=== PATIENT | female | born 1985 ===

== ENCOUNTER 2016-12-31 14:08 | Inpatient (IN) | payer OTHER ==
[2016-12-31 14:45] VITALS: BMI 32.1
--- NOTE | 2016-12-31 14:45 | OBADHP ---
Datetime: 12/31/2016 14:31 IP Chief Complaint Other: olihydramisos Admit Comment, IP Provider: Dr Monahan Private pateint at 39weeks came with c/o decreased fm and leakage of fluid on/off few days.no ctxs or vb. pt was not feeling the baby moving from the morning.pt went for sonogram and no fluid seen. obhx 1 x c/s ph hypothryroidism med synthroid all nkda psh c/s soch de ve /3 sono cep/ant/no fluid a/p at 39weeks pprom/dec fm and anyhraminosos admit to l_d npo/ivf labs pain magement cont neftali and efm james baloon anticioate vaginal delivery Pelvic Type - PN: Adequate Extremities - PN: Normal Abdomen - PN: Normal Back - PN: Normal Breast - PN: Not Done Lungs - PN: Normal Heart - PN: Normal Thyroid - PN: Not Done Neurologic - PN: Normal HEENT - PN: Normal General - PN: Normal FHR - Baseline A Provider: 130 Amniotic Fluid Color, Provider: Clear Membranes, Provider: Ruptured Contraction Comments Provider: irrg Comments, ACOG Physical Exam: gravid,non tender ext no sharon,no calf ten sse +pooling,+nitrazine Pool Provider: Positive Nitrazine Provider: Positive IP Hx Assessment: The History has been Reviewed and is Current Vital Signs Provider: Reviewed; Within Normal Limits IP Chief Complaint: Decreased movement NICHD Variability Prov Fetus A: Moderate 6-25bpm NICHD Accel Fetus A IP Provider: 15X15 FHR Category Provider Fetus A: Category I Dilatation, Provider: 1 Effacement, Provider: 50 Station, Provider: -3 Genitourinary Exam: Normal DTRs - PN: Normal EGA AdmitDate IP: 39.0 IP Adm Impression: Term, intrauterine IP Admit Plan: Admit to unit; Initiate protocol
[2016-12-31 15:24] LABS: BASO % 0.2 % (0.0-2.0); EOS # 0.1 K/uL (0.0-0.7); EOS % 0.8 % (0.0-4.0); HEMATOCRIT 38.2 % (34.0-47.0); LYMPH # 1.6 K/uL (1.0-4.3); LYMPH % 15.6 % (20.0-40.0); MEAN CELL VOLUME 82.5 fL (81.0-99.0); MEAN CORPUSCULAR HEMOGLOBIN 28.6 pg (27.0-31.0); MEAN CORPUSCULAR HGB CONC 34.7 g/dL (33.0-37.0); MEAN PLATELET VOLUME 10.5 fL (7.2-11.7); MONO # 0.5 K/uL (0.0-0.8); MONO % 4.7 % (0.0-10.0); WHITE BLOOD COUNT 10.3 K/uL (4.8-10.8)
[2016-12-31 15:31] LABS: RBC URINE 1 /hpf (0-3); URINE BACTERIA RARE (<OCC); URINE BILIRUBIN NEGATIVE (NEGATIVE); URINE BLOOD NEGATIVE (NEGATIVE); URINE COLOR Yellow (YELLOW); URINE GLUCOSE (UA) NORMAL (Normal); URINE KETONE NEGATIVE (NEGATIVE); URINE LEUKOCYTE ESTERASE 1+ Leu/uL (Negative); URINE PROTEIN NEGATIVE (NEGATIVE); URINE UROBILINOGEN NORMAL mg/dL (0.2-1.0); WBC URINE 10 /hpf (0-5)
[2016-12-31 15:38] LABS: CHLORIDE 104 mmol/L (98-107); SODIUM 134 mmol/L (132-148)
[2016-12-31 15:39] LABS: POTASSIUM 3.8 mmol/L (3.6-5.2)
[2016-12-31 15:41] LABS: ALKALINE PHOSPHATASE 126 U/L (38-126); AST/SGOT 23 U/L (14-36); BILIRUBIN,TOTAL 0.3 mg/dL (0.2-1.3); CARBON DIOXIDE 19 mmol/L (22-30); GFR AFRICAN-AMERICAN > 60; TOTAL PROTEIN 7.3 g/dL (6.3-8.3)
[2016-12-31 15:42] LABS: ALT/SGPT 32 U/L (9-52); BLOOD UREA NITROGEN 6 mg/dL (7-17); CALCIUM 9.5 mg/dl (8.6-10.4); GLUCOSE,RANDOM 93 mg/dL (65-105)
[2016-12-31] MEDS ORDERED: Oxytocin 30 UNIT 30 UNITS/500 ML BAG IV PRN (16:26)
[2016-12-31] MEDS ORDERED: Nalbuphine 20 mg/ml Inj (1 ml) IVP PRN (16:30)
[2016-12-31] MEDS: Lactated Ringer's 1,000 ML IV SCH (21:25)
--- NOTE | 2017-01-01 04:02 | OBPN ---
Datetime: 01/01/2017 04:01 IP Procedures: Sterile Vag Exam Contraction Comments Provider: q1-5 FHR - Baseline A Provider: 130 IP Progress Note Comment: pt was examined at bed side ve 60/-2 cervical james baloon cont pitocin will revaluate i 2 hrs and if no chane will do c/s Vital Signs Provider: Reviewed; Within Normal Limits NICHD Accel Fetus A IP Provider: 15X15 FHR Category Provider Fetus A: Category I NICHD Variability Prov Fetus A: Moderate 6-25bpm Dilatation, Provider: 1 Effacement, Provider: 60 Station, Provider: -3 Datetime: 12/31/2016 14:31 Pool Provider: Positive Nitrazine Provider: Positive Membranes, Provider: Ruptured Amniotic Fluid Color, Provider: Clear
[2017-01-01] MEDS ORDERED: Oxytocin 20 units in LR 2,000 ML IV ONE (04:43)
[2017-01-01] MEDS ORDERED: cefOXitin IV 2 gm in Dextrose 2 GM/50 ML BAG IVPB ONE ×2 (04:43→05:00)
--- NOTE | 2017-01-01 06:19 | OBPN ---
Datetime: 01/01/2017 06:16 IP Progress Impression: Arrest of dilatation/descent IP Informed Consent Obtain: Section Delivery; Risks, Benefits and Alternatives Discussed IP Procedures: Sterile Vag Exam Contraction Comments Provider: q1-4 FHR - Baseline A Provider: 130 IP Progress Note Comment: pt was examinerd at bed side derrick /-3 no cgane after pitocin and james c/s called. fsiled r/a/b disc npo/ivf or aware athesia awar all questions answered NICHD Accel Fetus A IP Provider: 15X15 FHR Category Provider Fetus A: Category I NICHD Variability Prov Fetus A: Moderate 6-25bpm Dilatation, Provider: 1 Effacement, Provider: 50 Station, Provider: -3
--- NOTE | 2017-01-01 06:21 | PCM.SURG1 ---
Surgeon's Initial Post Op Note - Surgeon's Notes Surgeon: dr sepulveda Warp Bleaching Vat Tender: dr spring Anesthesia Administered By: dr garcia Pre-Operative Diagnosis: 31 yr at 39+weeks anyhyraminosis/failerd induction /failed Operative Findings: see the op report Post-Operative Diagnosis: same Operation Performed: repeat section Specimen/Specimens Removed: cord blood. cord gas. placente Estimated Blood Loss: EBL {In ML}: 700 Blood Products Given: N/A Drains Used: No Drains Post-Op Condition: Good Date of Surgery/Procedure: 01/01/17 Time of Surgery/Procedure: 08:00
[2017-01-01] MEDS ORDERED: Morphine 1 mg/ml preservative-free Inj(Duramorph) ONE (06:31)
[2017-01-01] MEDS ORDERED: ePHEDrine 50 mg/ml Inj ONE (06:57)
[2017-01-01] MEDS ORDERED: Naloxone 0.4 mg/ml Inj (Adult) IVP PRN (07:49)
[2017-01-01] MEDS ORDERED: Oxytocin 20 units in LR 0 ML IV ONE (08:08)
[2017-01-01] MEDS: Lactated Ringer's 1,000 ML IV SCH (17:36)
[2017-01-01] MEDS: Simethicone 80 mg Chewtab PO SCH ×2 (17:39→22:33)
[2017-01-02] MEDS ORDERED: Bisacodyl 5mg EC Tab PO ONE (06:30)
[2017-01-02 07:29] LABS: HEMATOCRIT 38.4 % (34.0-47.0); MEAN CELL VOLUME 82.5 fL (81.0-99.0); MEAN CORPUSCULAR HEMOGLOBIN 28.5 pg (27.0-31.0); MEAN CORPUSCULAR HGB CONC 34.6 g/dL (33.0-37.0); MEAN PLATELET VOLUME 9.4 fL (7.2-11.7); RED CELL DISTRIBUTION WIDTH 14.5 % (11.5-14.5); WHITE BLOOD COUNT 14.4 K/uL (4.8-10.8)
[2017-01-02] MEDS: Oxycodone/Acetaminophen 5/325 mg Tab PO PRN ×2 (08:30→14:25)
[2017-01-02] MEDS: Simethicone 80 mg Chewtab PO SCH ×4 (10:25→22:15)
--- NOTE | 2017-01-02 11:21 | OBPPN ---
Datetime: 01/02/2017 07:34 PP Pain Prov: Within normal limits PP Nausea Prov: Denies PP Flatus Prov: Yes PP BM Prov: No PP Breasts Prov: Normal PP Heart Prov: Normal PP Lungs Prov: Normal PP Abdomen/Uterus Prov: Normal PP Lochia Prov: Normal PP Vulva/Perineum Prov: Normal PP CVA Tenderness Prov: Normal PP Extremities Prov: Normal PP C/S Incision Prov: Normal PP Progress Prov: Normal PP Comments Phys Exam Prov: incision clean and dry abd fundus below breakfast ext mild edema,no calf ten PP Impression Prov: Normal progression PP Plan Prov: Continue present management PP Progress Note Prov: 31 year old female status post day 1 after states her pain is currently a 4/10. She states she is taking her pain medication but it does make her drowsy. She sta roro she is passing flatus but denies a bowel movement. She states she is trying to breastfeed. She denies dysuria, nausea or vomiting. Objective: B/P: 110/70 H/H (01/02): 13.3/38.4 H/H on admission (12/31):13.3/38.2 Abdomen: Tender, soft, fundus is firm, incision is clean, dry and intact Lower Extremity: non-tender, non-swollen A/P: 31 year old female status post op day 1 01/01 1.) Advance diet 2.) Continue pain managment 3.) Encourage ambulation 4.) Encourage breast feeding. Jamilah Amador, PGY-1 Vital Signs Provider PP: Reviewed; Within Normal Limits
[2017-01-03] MEDS: Levothyroxine 75 MCG TAB PO SCH (06:24)
[2017-01-03] MEDS: Simethicone 80 mg Chewtab PO SCH ×4 (09:37→21:42)
[2017-01-03] MEDS: Oxycodone/Acetaminophen 5/325 mg Tab PO PRN ×2 (12:37→20:33)
[2017-01-04] MEDS: Levothyroxine 75 MCG TAB PO SCH (07:10)
[2017-01-04 08:36] VITALS: BP 125/81; PULSE 74; RESP 18; TEMP 97.5; O2SAT 98
[2017-01-04] MEDS: Simethicone 80 mg Chewtab PO SCH (09:46)
[2017-01-04] MEDS ORDERED: Influenza Vaccine 60 mcg/0.5 mL SYR (4YR UP) IM ONE (10:30)
--- NOTE | 2017-01-06 11:51 | OP ---
PROCEDURE DATE: PREOPERATIVE DIAGNOSES: A 31-year-old 2, para 1 at 38 plus weeks with oligohydramnios, rule out rupture of membranes, requested vaginal after section, failed vaginal after section. POSTOPERATIVE DIAGNOSES: A 31-year-old 2, para 1 at 38 plus weeks with oligohydramnios, rule out rupture of membranes, requested vaginal after section, failed vaginal after section. SURGEON: Balwinder Monahan MD CHIP UNLOADER SURGEON: Dr. Caballero who was present throughout the surgery for retraction, exposing and pushing at the time of the delivery. TYPE OF ANESTHESIA: Spinal. ANESTHESIOLOGIST: Madan Philippe MD COMPLICATIONS: None. ESTIMATED BLOOD LOSS: 700 mL. PROCEDURE PERFORMED: section after failed . DESCRIPTION OF PROCEDURE: After informed consent was obtained, the patient was brought to the operating room, placed on the table where spinal anesthesia was given. Once the anesthesia was given, the patient was prepped and draped in the normal sterile fashion. Above 2 cm above the pubic bone, skin incision was made with a knife, the subcutaneous cut with a Bovie. The fascia was then excised on both the sides using curved Nice scissors. Rectus muscle was lift up with 2 Allis and then it was cut with a knife, the peritoneum was lifted up with 2 Allis which was cut with Metzenbaum scissors and we went into the abdominal cavity. Bladder blade was placed. Bladder flap was created. Lower uterine segment incision was made with a knife, it was extended using Bovie and curved Nice scissors. Baby was delivered in a direct occipitoposterior position, cord was clamped and cut, baby was handed to the awaiting offset plate preparation supervisor. There was cord around the neck of the baby. Cord gas was sent. Placenta delivered manually and sent to the Pathology. Uterus was exteriorized and cleared of all clots and debris. Uterine incision was closed using #1 Vicryl in running interlocking fashion. Second layer was closed with the same stitch. Cul-de-sac was cleared of all the clots and debris. Uterus was returned back to the abdominal cavity. After that, gutters were cleared of all the clots and debris. Peritoneum was closed using 2-0 Vicryl in running interlocking fashion. Muscle was closed using 2-0 Vicryl in running interlocking fashion. The fascia was closed using #1 Vicryl in running interlocking fashion. Subcutaneous tissue was closed with 0 Vicryl in interrupted fashion. Skin was closed using 3-0 Monocryl straight needle. The patient tolerated the procedure well. Lap, sponge, and instrument counts were correct x2. Balwinder Monahan MD
== END 2017-01-04 13:00 | disposition home or self-care (01) | DRG 766 ==
LOC: C.EROB 14:08 → C.4D 14:31 → C.4M 01-01 10:00
PROVIDERS: ADMIT Obstetrics & Gynecology; ATTEND Obstetrics & Gynecology
PROC: 10D00Z1 Extraction of Products of Conception, Low, Open Approach (ICD-10-PCS; principal; 2017-01-01)
DX: O42.12 Full-term premature rupture of membranes, onset of labor more than 24 hours following rupture (principal); O66.41 Failed attempted vaginal birth after previous cesarean delivery; O62.0 Primary inadequate contractions; O34.211 Maternal care for low transverse scar from previous cesarean delivery; O36.8130 Decreased fetal movements, third trimester, not applicable or unspecified; O99.284 Endocrine, nutritional and metabolic diseases complicating childbirth; E03.9 Hypothyroidism, unspecified; Z37.0 Single live birth; Z3A.38 38 weeks gestation of pregnancy